=== PATIENT | male | born 1990 | race Caucasian/White ===

== ENCOUNTER 2022-07-04 00:04 | Emergency (ER) | payer MEDICAID ==
[~2022-07-04] VITALS: Ht 165.1 cm; Wt 76.0 kg
[2022-07-04] MEDS ORDERED: ONDANSETRON 4MG ODT PO ONE (03:00)
[2022-07-04] MEDS ORDERED: ONDA4TAB50 MT (03:39)
[2022-07-04 03:59] VITALS: BP 119/65
== END 2022-07-04 04:04 | disposition home or self-care (01) ==
LOC: ER 00:04
DX: R11.2 Nausea with vomiting, unspecified (principal)
CPT/HCPCS: 99283; Q0162

== ENCOUNTER 2023-11-30 15:39 | Emergency (ER) | payer MEDICAID, OTHER ==
[~2023-11-30] VITALS: Ht 167.6 cm; Wt 77.1 kg
[~2023-11-30 15:39] MED LIST: ONDA4TAB50 MT
[2023-11-30 16:05] VITALS: O2SAT 100
[2023-11-30] MEDS: IBUPROFEN 600MG TABLET PO ONE (17:20)
[2023-11-30 17:48] VITALS: BP 128/78; PULSE 76; RESP 18; TEMP 37.00296; O2SAT 100
== END 2023-11-30 17:50 | disposition home or self-care (01) ==
LOC: ER 15:39
DX: M79.641 Pain in right hand (principal)
CPT/HCPCS: 73130; 99283